=== PATIENT | male | born 1975 | race Two or more races ===

== ENCOUNTER 2020-07-13 06:59 | Outpatient (REF) | payer OTHER, SELFPAY ==
--- NOTE | 2020-07-13 07:07 | XR_ITS ---
EXAMINATION: XR SHOULDER, RIGHT CLINICAL INFORMATION: Pain right shoulder. COMPARISON: None TECHNIQUE: Two views of the right shoulder. FINDINGS: There is a widening of the right AC joint with elevated lateral clavicle in relation to acromion. Also visualized is hypertrophic ossification extending from the undersurface of lateral clavicle to the coracoid process the glenohumeral joints space is normal. The proximal humerus is normal. No acute fracture or dislocation. XR/XR shoulder RT min 2V IMPRESSION: Widely of the right AC joint likely chronic deformity. There is hypertrophic ossification extending from the undersurface of clavicle to the coronary process unchanged to previous study. No acute fracture or dislocation.
== END 2020-07-13 07:00 | disposition home or self-care (01) ==
LOC: HO.XRAY 06:59
PROVIDERS: PCP Internal Medicine; Visit Provider Physical Medicine & Rehabilitation
DX: M25.511 Pain in right shoulder (principal); S42.031 Displaced fracture of lateral end of right clavicle
CPT/HCPCS: 73030

== ENCOUNTER 2020-12-04 06:05 | Outpatient (REF) | payer OTHER, SELFPAY ==
[2020-12-04 07:02] LABS: MANUAL DIFF FLAG NO
[2020-12-04 07:04] LABS: Basophils Absolute Auto 0.1 X10*3/uL (0.0-0.2); Basophils Percent Auto 1.4 % (0-2); Eosinophils Absolute Auto 0.2 X10*3/uL (0.0-0.4); Eosinophils Percent Auto 4.8 % (0-4); Hematocrit 40.4 % (42-52); Hemoglobin 12.5 g/dl (14.0-18.0); Imm Gran Abs Auto 0.01 X10*3/uL (0.00-0.03); Imm Gran Pct Auto 0.2 % (0.0-0.4); Lymphocytes Absolute Auto 1.9 X10*3/uL (1.2-4.9); Lymphocytes Percent Auto 42.5 % (20-40); Mean Corpuscular HGB Conc 30.9 g/dl (31.0-36.0); Mean Corpuscular Hemoglobin 28.3 pg (27.0-33.0); Mean Corpuscular Volume 91.6 fL (80-98); Mean Platelet Volume 10.9 fL (9.4-12.4); Monocytes Absolute Auto 0.6 X10*3/uL (0.1-1.2); Monocytes Percent Auto 14.1 % (2-11); Neutrophils Absolute Auto 1.6 X10*3/uL (2.0-8.3); Platelet Count 212 X10*3/uL (160-400); Red Blood Count 4.41 X10*6/uL (4.60-5.80); Red Cell Distribution Width 12.1 % (11.0-16.0); White Blood Count 4.4 X10*3/uL (4.8-10.8)
[2020-12-04 07:39] LABS: Alanine Aminotransferase 16 U/L (0-40); Albumin Level 4.4 g/dL (3.5-5.0); Alkaline Phosphatase 71 U/L (39-117); Anion Gap 12 (12-20); Aspartate Amino Transferase 41 U/L (5-37); Bilirubin Total < 0.2 mg/dL (0.0-1.0); Blood Urea Nitrogen 16 mg/dL (9-16); Calcium 9.5 mg/dL (8.4-10.2); Carbon Dioxide 28 mmol/L (22-29); Chloride 105 mmol/L (96-108); Cholesterol 204 mg/dL; Estimated Glomerular Filt Rate > 60; Glucose Fasting 98 mg/dL (60-99); HDL Cholesterol 67 mg/dL; LDL Cholesterol Calculated 128 mg/dl; Potassium 5.2 mmol/L (3.3-5.1); Sodium 140 mmol/L (135-145); Total Protein 7.4 g/dL (6.5-8.0); Triglycerides 49 mg/dL
== END 2020-12-04 06:06 | disposition home or self-care (01) ==
LOC: HO.LAB 06:05
PROVIDERS: PCP Internal Medicine; Visit Provider Internal Medicine
DX: D64.9 Anemia, unspecified (principal); M51.9 Unspecified thoracic, thoracolumbar and lumbosacral intervertebral disc disorder; E78.5 Hyperlipidemia, unspecified
CPT/HCPCS: 36415; 80053; 80061; 85025

== ENCOUNTER 2020-12-10 06:07 | Outpatient (REF) | payer OTHER, SELFPAY ==
[2020-12-10 07:20] LABS: MANUAL DIFF FLAG NO
[2020-12-10 07:28] LABS: Basophils Percent Auto 1.1 % (0-2); Eosinophils Absolute Auto 0.1 X10*3/uL (0.0-0.4); Eosinophils Percent Auto 3.8 % (0-4); Hematocrit 37.7 % (42-52); Lymphocytes Absolute Auto 1.7 X10*3/uL (1.2-4.9); Lymphocytes Percent Auto 44.5 % (20-40); Mean Corpuscular HGB Conc 31.8 g/dl (31.0-36.0); Mean Corpuscular Hemoglobin 28.5 pg (27.0-33.0); Mean Corpuscular Volume 89.5 fL (80-98); Mean Platelet Volume 11.2 fL (9.4-12.4); Monocytes Absolute Auto 0.5 X10*3/uL (0.1-1.2); Monocytes Percent Auto 12.1 % (2-11); Neutrophils Absolute Auto 1.4 X10*3/uL (2.0-8.3); Neutrophils Percent Auto 38.5 % (45-73); Platelet Count 203 X10*3/uL (160-400); Red Blood Count 4.21 X10*6/uL (4.60-5.80); White Blood Count 3.7 X10*3/uL (4.8-10.8)
[2020-12-10 07:43] LABS: Alanine Aminotransferase 14 U/L (0-40); Albumin Level 4.3 g/dL (3.5-5.0); Alkaline Phosphatase 71 U/L (39-117); Anion Gap 10 (12-20); Aspartate Amino Transferase 40 U/L (5-37); Bilirubin Total 0.4 mg/dL (0.0-1.0); Blood Urea Nitrogen 13 mg/dL (9-16); Calcium 9.3 mg/dL (8.4-10.2); Carbon Dioxide 27 mmol/L (22-29); Chloride 105 mmol/L (96-108); Cholesterol 190 mg/dL; Estimated Glomerular Filt Rate > 60; Glucose Fasting 86 mg/dL (60-99); HDL Cholesterol 61 mg/dL; LDL Cholesterol Calculated 111 mg/dl; Potassium 4.4 mmol/L (3.3-5.1); Sodium 138 mmol/L (135-145); Triglycerides 93 mg/dL
[2020-12-10 08:09] LABS: HIV AB/AG Nonreactive (Nonreactive); HIV Num 1 0.05 S/CO (0.00-0.99)
[2020-12-10 09:49] LABS: CT PCR NOT DETECTED (Not Detect.); NG PCR NOT DETECTED (Not Detect.)
[2020-12-11 04:47] LABS: Syphilis Screen Nonreactive (Nonreactive)
[2020-12-17 16:42] LABS: Vitamin D 25-OH, D2 <4 ng/mL; Vitamin D 25-OH, D3 25 ng/mL; Vitamin D 25-OH, Total 25 ng/mL (30-100)
== END 2020-12-10 06:08 | disposition home or self-care (01) ==
LOC: HO.LAB 06:07
PROVIDERS: Visit Provider Internal Medicine
DX: E55.9 Vitamin D deficiency, unspecified (principal); E78.5 Hyperlipidemia, unspecified; K21.9 Gastro-esophageal reflux disease without esophagitis; D64.9 Anemia, unspecified; Z11.3 Encounter for screening for infections with a predominantly sexual mode of transmission
CPT/HCPCS: 80053; 80061; 82306; 85025; 86780; 87389; 87491; 87591

== ENCOUNTER 2021-01-20 06:13 | Outpatient (REF) | payer OTHER, SELFPAY ==
[2021-01-23 19:06] LABS: TS Negative Control Passed; TS Panel A 0; TS Panel B 2; TS Positive Control Passed; TSpotTB Negative (SeeBelow)
== END 2021-01-20 06:14 | disposition home or self-care (01) ==
LOC: HO.LAB 06:13
PROVIDERS: PCP Internal Medicine; Visit Provider Internal Medicine
DX: Z01.84 Encounter for antibody response examination (principal)
CPT/HCPCS: 36415; 86481

== ENCOUNTER 2021-09-15 06:10 | Outpatient (REF) | payer OTHER, SELFPAY ==
[2021-09-15 06:21] LABS: MANUAL DIFF FLAG NO
[2021-09-15 07:18] LABS: Basophils Absolute Auto 0.1 X10*3/uL (0.0-0.2); Basophils Percent Auto 1.5 % (0-2); Eosinophils Absolute Auto 0.2 X10*3/uL (0.0-0.4); Eosinophils Percent Auto 5.2 % (0-4); Hematocrit 41.6 % (42.0-52.0); Hemoglobin 12.9 g/dl (14.0-18.0); Imm Gran Abs Auto 0.01 X10*3/uL (0.00-0.03); Imm Gran Pct Auto 0.2 % (0.0-0.4); Lymphocytes Percent Auto 41.9 % (20-40); Mean Corpuscular Hemoglobin 28.1 pg (27.0-33.0); Mean Corpuscular Volume 90.6 fL (80.0-98.0); Mean Platelet Volume 10.9 fL (9.4-12.4); Monocytes Absolute Auto 0.5 X10*3/uL (0.1-1.2); Monocytes Percent Auto 9.9 % (2-11); Neutrophils Absolute Auto 1.9 x10*3/uL (2.0-8.3); Neutrophils Percent Auto 41.3 % (45-73); Platelet Count 261 X10*3/uL (160-400); Red Blood Count 4.59 X10*6/uL (4.60-5.80); Red Cell Distribution Width 12.8 % (11.0-16.0); White Blood Count 4.7 X10*3/uL (4.8-10.8)
[2021-09-15 07:42] LABS: Alanine Aminotransferase 11 U/L (0-40); Albumin Level 4.5 g/dL (3.5-5.0); Alkaline Phosphatase 73 U/L (39-117); Anion Gap 12 (12-20); Aspartate Amino Transferase 32 U/L (5-37); Bilirubin Total 0.2 mg/dL (0.0-1.0); Blood Urea Nitrogen 15 mg/dL (9-16); Calcium 10.3 mg/dL (8.4-10.2); Carbon Dioxide 30 mmol/L (22-29); Chloride 102 mmol/L (96-108); Estimated Glomerular Filt Rate > 60; Glucose Random 69 mg/dL (60-115); Potassium 5.1 mmol/L (3.3-5.1); Sodium 139 mmol/L (135-145); Total Protein 7.7 g/dL (6.5-8.0)
== END 2021-09-15 06:11 | disposition home or self-care (01) ==
LOC: HO.LAB 06:10
PROVIDERS: PCP Internal Medicine; Visit Provider Physician Assistant Medical
DX: M54.16 Radiculopathy, lumbar region (principal)
CPT/HCPCS: 36415; 80053; 85025

== ENCOUNTER 2021-12-14 06:33 | Outpatient (REF) | payer OTHER, SELFPAY ==
[2021-12-14 06:50] LABS: MANUAL DIFF FLAG NO
[2021-12-14 07:30] LABS: Basophils Percent Auto 0.8 % (0-2); Eosinophils Absolute Auto 0.1 X10*3/uL (0.0-0.4); Eosinophils Percent Auto 2.3 % (0-4); Hematocrit 38.8 % (42.0-52.0); Hemoglobin 12.2 g/dl (14.0-18.0); Imm Gran Abs Auto 0.01 X10*3/uL (0.00-0.03); Imm Gran Pct Auto 0.3 % (0.0-0.4); Lymphocytes Absolute Auto 1.9 X10*3/uL (1.2-4.9); Lymphocytes Percent Auto 48.5 % (20-40); Mean Corpuscular HGB Conc 31.4 g/dl (31.0-36.0); Mean Corpuscular Hemoglobin 27.7 pg (27.0-33.0); Mean Platelet Volume 10.8 fL (9.4-12.4); Monocytes Absolute Auto 0.4 X10*3/uL (0.1-1.2); Monocytes Percent Auto 10.1 % (2-11); Neutrophils Absolute Auto 1.5 x10*3/uL (2.0-8.3); Platelet Count 186 X10*3/uL (160-400); Red Blood Count 4.41 X10*6/uL (4.60-5.80)
[2021-12-14 07:33] LABS: INTERNATIONAL NORM RATIO 0.9 (0.9-1.1); Prothrombin Time 10.7 SEC (9.9-13.0)
[2021-12-14 07:35] LABS: Partial Thromboplastin Time 35.6 SEC (24.1-38.0)
[2021-12-14 07:58] LABS: Alanine Aminotransferase 10 U/L (0-40); Albumin Level 4.3 g/dL (3.5-5.0); Alkaline Phosphatase 63 U/L (39-117); Anion Gap 11 (12-20); Aspartate Amino Transferase 33 U/L (5-37); Bilirubin Total 0.2 mg/dL (0.0-1.0); Blood Urea Nitrogen 12 mg/dL (9-16); Calcium 9.9 mg/dL (8.4-10.2); Carbon Dioxide 30 mmol/L (22-29); Chloride 102 mmol/L (96-108); Estimated Glomerular Filt Rate > 60; Glucose Fasting 84 mg/dL (60-99); Potassium 4.6 mmol/L (3.3-5.1); Sodium 138 mmol/L (135-145); Total Protein 7.2 g/dL (6.5-8.0)
== END 2021-12-14 06:34 | disposition home or self-care (01) ==
LOC: HO.LAB 06:33
PROVIDERS: PCP Internal Medicine; Visit Provider Nurse Practitioner Family
DX: Z01.818 Encounter for other preprocedural examination (principal); E78.00 Pure hypercholesterolemia, unspecified; I10 Essential (primary) hypertension; Z79.01 Long term (current) use of anticoagulants
CPT/HCPCS: 36415; 80053; 85025; 85610; 85730

== ENCOUNTER → 2021-12-20 06:44 | Outpatient (REF) | payer OTHER, SELFPAY ==
--- NOTE | 2021-12-20 | ECG_ITS ---
Test Reason : CP Blood Pressure : / mmHG Vent. Rate : 052 BPM Atrial Rate : 052 BPM P-R Int : 156 ms QRS Dur : 086 ms QT Int : 394 ms P-R-T Axes : 022 052 048 degrees QTc Int : 366 ms Sinus bradycardia Otherwise normal ECG When compared with ECG of 08-SEP-2012 14:23, Vent. rate has decreased BY 47 BPM QRS duration has decreased Borderline criteria for Inferior infarct are no longer Present T wave inversion no longer evident in Inferior leads Nonspecific T wave abnormality no longer evident in Anterolateral leads QT has shortened Referred By: George Barlow Electronically Signed By:ADRIAN BRIZUELA MD
== END ==
LOC: HO.CARD 06:44
PROVIDERS: PCP Internal Medicine; Visit Provider Nurse Practitioner Family
DX: R07.9 Chest pain, unspecified (principal)
CPT/HCPCS: 93005

== ENCOUNTER 2022-01-28 06:07 | Outpatient (REF) | payer OTHER, SELFPAY ==
[2022-01-28 07:50] LABS: Alanine Aminotransferase 17 U/L (0-40); Albumin Level 4.3 g/dL (3.5-5.0); Alkaline Phosphatase 75 U/L (39-117); Anion Gap 13 (12-20); Aspartate Amino Transferase 43 U/L (5-37); Bilirubin Total 0.2 mg/dL (0.0-1.0); Blood Urea Nitrogen 16 mg/dL (9-16); Calcium 9.6 mg/dL (8.4-10.2); Carbon Dioxide 26 mmol/L (22-29); Chloride 106 mmol/L (96-108); Cholesterol 199 mg/dL; Estimated Glomerular Filt Rate > 60; Glucose Fasting 80 mg/dL (60-99); HDL Cholesterol 58 mg/dL; LDL Cholesterol Calculated 128 mg/dl; Potassium 4.7 mmol/L (3.3-5.1); Sodium 140 mmol/L (135-145); Total Protein 7.2 g/dL (6.5-8.0); Triglycerides 66 mg/dL
[2022-01-28 08:12] LABS: Vitamin D 25-OH Total 31.8 ng/mL (>30)
== END 2022-01-28 06:08 | disposition home or self-care (01) ==
LOC: HO.LAB 06:07
PROVIDERS: PCP Internal Medicine; Visit Provider Internal Medicine
DX: Z00.00 Encounter for general adult medical examination without abnormal findings (principal); E55.9 Vitamin D deficiency, unspecified; E78.5 Hyperlipidemia, unspecified
CPT/HCPCS: 36415; 80053; 80061; 82306

== ENCOUNTER 2022-12-06 06:20 | Outpatient (REF) | payer OTHER, SELFPAY ==
[2022-12-06 06:38] LABS: MANUAL DIFF FLAG NO
[2022-12-06 07:59] LABS: Basophils Percent Auto 1.2 % (0-2); Eosinophils Absolute Auto 0.2 X10*3/uL (0.0-0.4); Eosinophils Percent Auto 5.5 % (0-4); Hematocrit 40.9 % (42.0-52.0); Imm Gran Abs Auto 0.01 X10*3/uL (0.00-0.03); Imm Gran Pct Auto 0.3 % (0.0-0.4); Lymphocytes Absolute Auto 1.6 X10*3/uL (1.2-4.9); Mean Corpuscular HGB Conc 31.8 g/dl (31.0-36.0); Mean Corpuscular Hemoglobin 28.1 pg (27.0-33.0); Mean Corpuscular Volume 88.3 fL (80.0-98.0); Mean Platelet Volume 11.5 fL (9.4-12.4); Monocytes Absolute Auto 0.4 X10*3/uL (0.1-1.2); Neutrophils Absolute Auto 1.3 x10*3/uL (2.0-8.3); Platelet Count 177 X10*3/uL (160-400); Red Blood Count 4.63 X10*6/uL (4.60-5.80); Red Cell Distribution Width 12.6 % (11.0-16.0); White Blood Count 3.5 X10*3/uL (4.8-10.8)
[2022-12-06 09:02] LABS: Alanine Aminotransferase 19 U/L (0-40); Albumin Level 4.2 g/dL (3.5-5.0); Alkaline Phosphatase 71 U/L (39-117); Anion Gap 12 (12-20); Aspartate Amino Transferase 61 U/L (5-37); Bilirubin Total 0.4 mg/dL (0.0-1.0); Blood Urea Nitrogen 15 mg/dL (9-16); Calcium 9.2 mg/dL (8.4-10.2); Carbon Dioxide 25 mmol/L (22-29); Chloride 107 mmol/L (96-108); Cholesterol 193 mg/dL; Estimated Glomerular Filt Rate > 60; Glucose Fasting 96 mg/dL (60-99); HDL Cholesterol 62 mg/dL; LDL Cholesterol Calculated 122 mg/dl; Potassium 4.1 mmol/L (3.3-5.1); Sodium 140 mmol/L (135-145); Total Protein 6.8 g/dL (6.5-8.0); Triglycerides 49 mg/dL
[2022-12-06 09:11] LABS: Vitamin D 25-OH Total 35.6 ng/mL (>30)
== END 2022-12-06 06:21 | disposition home or self-care (01) ==
LOC: HO.LAB 06:20
PROVIDERS: PCP Internal Medicine; Visit Provider Internal Medicine
DX: E55.9 Vitamin D deficiency, unspecified (principal); E78.5 Hyperlipidemia, unspecified; J44.9 Chronic obstructive pulmonary disease, unspecified; D64.9 Anemia, unspecified; D75.89 Other specified diseases of blood and blood-forming organs
CPT/HCPCS: 36415; 80053; 80061; 82306; 85025

== ENCOUNTER 2023-01-31 06:25 | Outpatient (REF) | payer OTHER, SELFPAY ==
[2023-01-31 06:40] LABS: MANUAL DIFF FLAG NO
[2023-01-31 07:31] LABS: Basophils Absolute Auto 0.1 X10*3/uL (0.0-0.2); Basophils Percent Auto 1.4 % (0-2); Eosinophils Absolute Auto 0.2 X10*3/uL (0.0-0.4); Eosinophils Percent Auto 4.3 % (0-4); Hematocrit 39.8 % (42.0-52.0); Hemoglobin 12.3 g/dl (14.0-18.0); Imm Gran Abs Auto 0.01 X10*3/uL (0.00-0.03); Imm Gran Pct Auto 0.2 % (0.0-0.4); Lymphocytes Absolute Auto 1.7 X10*3/uL (1.2-4.9); Lymphocytes Percent Auto 38.7 % (20-40); Mean Corpuscular HGB Conc 30.9 g/dl (31.0-36.0); Mean Corpuscular Hemoglobin 27.5 pg (27.0-33.0); Mean Platelet Volume 11.7 fL (9.4-12.4); Monocytes Absolute Auto 0.6 X10*3/uL (0.1-1.2); Monocytes Percent Auto 12.8 % (2-11); Neutrophils Absolute Auto 1.9 x10*3/uL (2.0-8.3); Neutrophils Percent Auto 42.6 % (45-73); Platelet Count 169 X10*3/uL (160-400); Red Blood Count 4.47 X10*6/uL (4.60-5.80); Red Cell Distribution Width 12.7 % (11.0-16.0); White Blood Count 4.4 X10*3/uL (4.8-10.8)
[2023-01-31 08:09] LABS: Alanine Aminotransferase 19 U/L (0-40); Albumin Level 4.3 g/dL (3.5-5.0); Alkaline Phosphatase 81 U/L (39-117); Aspartate Amino Transferase 45 U/L (5-37); Bilirubin Direct 0.1 mg/dL (0.0-0.5); Bilirubin Total 0.4 mg/dL (0.0-1.0); Iron 60 mcg/dL (45-160); Percent Iron Saturation 19 % (15-50); Total Iron Binding Capacity 310 mcg/dL (228-428); Unsaturated Iron Binding 250 ug/dL
== END 2023-01-31 06:26 | disposition home or self-care (01) ==
LOC: HO.LAB 06:25
PROVIDERS: PCP Internal Medicine; Visit Provider Internal Medicine
DX: Z00.00 Encounter for general adult medical examination without abnormal findings (principal); D64.9 Anemia, unspecified; E55.9 Vitamin D deficiency, unspecified
CPT/HCPCS: 36415; 80076; 82306; 83540; 85025

== ENCOUNTER 2023-05-24 08:59 | Outpatient (AMB) | payer OTHER, SELFPAY ==
--- NOTE | 2023-05-24 09:01 | AM.OFFVISNUR ---
Intake Intake Visit Reasons: PPD Implant Allergies acetaminophen [Tylenol-Codeine] Allergy (Intermediate, Verified 01/19/23 08:43) rash codeine [Tylenol-Codeine] Allergy (Intermediate, Verified 01/19/23 08:43) rash gabapentin Adverse Reaction (Intermediate, Verified 01/19/23 08:43) facial tingling Nubain Allergy (Intermediate, Uncoded 01/19/23 08:43) low blood pressure Office Meds tuberculin PPD 5 tub. unit/0.1 mL intradermal injection solution Performing Provider: Cheri Chávez MD Performing Location: [facility] Administered by: Karolina Ricardo RN on 05/24/23 09:09 Dose Route Admin Location Dispensed Lot Number Expiration Date NDC Assistant Prosecuting Attorney 0.1 mL intradermal left forearm 0.1 mL [id number] 06/20/26 61364-484-02 [employer] Coding Assessment & Plan Assessment & Plan Orders: Orders AMB PPD Planted Today Z11.1 - Encounter for screening for respiratory tuberculosis
== END 2023-05-24 09:10 | disposition home or self-care (01) ==
PROVIDERS: PCP Internal Medicine; Visit Provider Internal Medicine
DX: Z11.1 Encounter for screening for respiratory tuberculosis (principal)
CPT/HCPCS: 86580

== ENCOUNTER 2023-05-24 11:21 | Outpatient (AMB) | payer OTHER, SELFPAY ==
--- NOTE | 2023-05-24 09:45 | AM.OFFVISNUR ---
Intake Intake Visit Reasons: Flu vaccine Allergies acetaminophen [Tylenol-Codeine] Allergy (Intermediate, Verified 01/19/23 08:43) rash codeine [Tylenol-Codeine] Allergy (Intermediate, Verified 01/19/23 08:43) rash gabapentin Adverse Reaction (Intermediate, Verified 01/19/23 08:43) facial tingling Nubain Allergy (Intermediate, Uncoded 01/19/23 08:43) low blood pressure Office Procedures Flu Questionnaire Does the patient have a severe egg allergy?: No Does the patient have severe life threatening allergies?: No Does the patient have a fever or illness today?: No Has the patient ever had Guillain-Hogeland Syndrome?: No Has the patient ever had any past reaction to a flu shot?: No Immunizations flu vacc [id number] 6mos up(PF) 60 mcg(15 mcgx4)/0.5 mL IM syringe Performing Provider: Cheri Chávez MD Performing Location: [facility] Administered by: CRYSTAL Gonzales on 05/24/23 09:46 Dose Route Admin Location Dispensed Lot Number Expiration Date NDC Psychologist 0.5 mL IM Left Deltoid 0.5 mL [id number] 02/18/24 21393-916-80 [employer] VIS Given Date VIS Provided VIS Publication Date 05/24/23 Single Vaccine 21 Eligibility Eligibility Date Funding Source Not [facility] Eligible 05/24/23 Private Coding Assessment & Plan Assessment & Plan Orders: Orders Influenza [id number] Immunization Today Z23 - Encounter for immunization
== END 2023-05-24 11:22 | disposition home or self-care (01) ==
LOC: HO.HMGH 11:21
PROVIDERS: PCP Internal Medicine; Visit Provider Internal Medicine
DX: Z23 Encounter for immunization (principal)
CPT/HCPCS: 90471; 90686

== ENCOUNTER 2023-06-12 09:28 | Outpatient (AMB) | payer OTHER, SELFPAY ==
--- NOTE | 2023-06-12 09:45 | AM.OFFVISNUR ---
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 unit/0.1 mL intradermal injection solution Performing Provider: Cheri Chávez MD Performing Location: [facility] Administered by: Donny Hudson RN on 06/12/23 09:40 Dose Route Admin Location Dispensed Lot Number Expiration Date NDC Machinist 2Nd Shift 0.1 mL intradermal left forearm 0.1 mL [id number] 06/20/26 67264-872-87 [employer] Comments: consented for PPD implant. Patient educated to return in 48 hours on Monday and he verbalized understanding. tolerated well. Coding Assessment & Plan Assessment & Plan Orders: Orders AMB PPD Planted Today Z11.1 - Encounter for screening for respiratory tuberculosis
== END 2023-06-12 09:43 | disposition home or self-care (01) ==
PROVIDERS: PCP Internal Medicine; Visit Provider Internal Medicine
DX: Z11.1 Encounter for screening for respiratory tuberculosis (principal)
CPT/HCPCS: 86580

== ENCOUNTER 2023-07-25 07:54 | Outpatient (AMB) | payer OTHER, SELFPAY ==
--- NOTE | 2023-07-25 08:03 | A.OFFPC_ITS ---
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 Required: No Accompanied by: Self / Same As Patient Allergies acetaminophen [Tylenol-Codeine] Allergy (Intermediate, Verified 07/25/23 08:17) rash codeine [Tylenol-Codeine] Allergy (Intermediate, Verified 07/25/23 08:17) rash gabapentin Adverse Reaction (Intermediate, Verified 07/25/23 08:17) facial tingling Nubain Allergy (Intermediate, Uncoded 07/25/23 08:17) low blood pressure Medication List - Last Reconciled 07/25/23 by Cheri Chávez MD albuterol sulfate 90 mcg/actuation (Ventolin HFA) 2 puffs inhalation Q4-6H PRN 30 days cholecalciferol (vitamin D3) 25 mcg PO DAILY 90 days clotrimazole-betamethasone 1-0.05 % 1 appl topical BID 30 days fluticasone propionate 50 mcg/actuation 1 spray intranasal DAILY 30 days loratadine (Allergy Relief (loratadine)) 10 mg PO DAILY 90 days montelukast (Singulair) 10 mg PO QPM 30 days omeprazole 20 mg PO BID 90 days rivaroxaban (Xarelto) 20 mg PO DAILY 90 days sennosides (Senna Lax) 8.6 mg PO BEDTIME PRN 90 days tramadol 50 mg PO Q4-6H PRN 30 days umeclidinium-vilanterol 62.5-25 mcg/actuation (Anoro Ellipta) 1 inh inhalation DAILY 30 days Tobacco use date assessed: 09/14/22 Dental Screening Dental Screen Date: 07/25/23 Did you have a dental visit in the last 12 months?: Yes Did you have a dental problem in the last 6 months where you did not have access to dental care?: No Was dental information given to patient?: Patient has dentist HPI HPI Comments History of Present Illness Details This is a 47-year-old male with COPD, constipation, GERD and lumbar disc disease that comes today for follow-up on his conditions. COPD stable with longstanding inhaler. GERD well controlled with PPIs as needed. Had lumbar disc fusion about 2 months ago and still has some pain but has markedly improved. Constipation stable with senna as needed. No chest pain or shortness of breath. [facility] Medical History Bicytopenia Encounter for physical examination Constipation by delayed colonic transit Generalized anxiety disorder Allergic rhinitis Screening for STD (sexually transmitted disease) Presence of vena cava filter Lumbar disc disease GERD (gastroesophageal reflux disease) Moderate asthma Right leg DVT Surgical History History of lumbar surgery Family History Father FH: mental illness Maternal Grandmother Stroke Cancer Diabetes HTN (hypertension) Mother No problems noted. Social History Housing: Apartment Alcohol intake: former Year quit: 2010 Patient Tobacco Use Status: Former Tobacco user Tobacco use type: Cigarette Years Smoked: 24 years e-Cigarette/Vaping Use: Never Used Second Hand Smoke Exposure: No service: No Current occupational status: unemployed Cognitive needs: No Hearing needs: No Vision needs: No Questionnaire Thrive Questionnaire Date Thrive assessed: 09/14/22 SHILO-7 AMB Questionnaire SHILO-7 Date SHILO - 7 assessed: 09/14/22 Source: Developed by Drs. Nilesh Juárez, Gris Antonio, Yuan Guillen and colleagues, with an educational len from [employer]. Review of Systems Const All systems reviewed & are unremarkable except as noted in HPI and below Eyes Reports no additional complaints, Denies change in vision and Denies other visual disturbances Card Denies chest pain at rest, Denies chest pain with activity, Denies edema, Denies irregular heart rhythm, Denies claudication, Denies dyspnea, Denies dyspnea on exertion, Denies orthopnea, Denies paroxysmal nocturnal dyspnea and Denies slow heart rate Resp Denies cough, Denies dyspnea and Denies dyspnea on exertion GI Denies abdominal pain, Denies change in bowel habits, Denies excessive flatus, Denies nausea and Denies vomiting Denies urinary hesitancy, Denies urinary incontinence and Denies urinary urgency Musc Denies abnormal gait, Denies atrophy, Denies deformity and Denies limited range of motion Skin/Breast Denies bleeding lesions, Denies changing lesions and Denies rash Neuro Denies abnormal gait and Denies lack of coordination Physical exam (Primary Care) Vital Signs: Last Vital Signs BP 118/72 07/25/23 08:04 BMI result Body Mass Index 26.5 Tobacco/Smoking Status: Tobacco use Status Tobacco use date assessed 09/14/22 07/25/23 08:09 Patient Tobacco Use Status Former Tobacco user 07/25/23 08:09 Tobacco use type Cigarette 07/25/23 08:09 e-Cigarette/Vaping Use Never Used 07/25/23 08:09 Thrive Assessment: Date of Thrive Assessment Date Thrive assessed 09/14/22 07/25/23 08:09 Eyes General: appearance normal, both eyes and all related structures Eyelids: Yes eyelids normal Conjunctivae: conjunctivae normal Neck Neck: Yes normal visual inspection and Yes supple Resp Effort & Inspection: normal respiratory effort Auscultation: clear to auscultation bilaterally Cardio Jugular venous distension: no JVD Rate: regular rate Rhythm: regular rhythm Heart sounds: S1 normal heart sound present and S2 normal heart sound present Extrem General: Yes full ROM Assessment and Plan Assessment & Plan (1) COPD (chronic obstructive pulmonary disease): Code(s): J44.9 - Chronic obstructive pulmonary disease, unspecified Plan: Continue longstanding inhaler. Use rescue inhaler as needed. (2) Constipation by delayed colonic transit: Code(s): K59.01 - Slow transit constipation Plan: Continue senna as needed. (3) Lumbar disc disease: Comment: Surgical repair in his 20's Code(s): M51.9 - Unspecified thoracic, thoracolumbar and lumbosacral intervertebral disc disorder Plan: Continue tramadol as needed for severe pain. (4) GERD (gastroesophageal reflux disease): Code(s): K21.9 - Gastro-esophageal reflux disease without esophagitis Qualifiers: Esophagitis presence: esophagitis presence not specified Qualified Code(s): K21.9 - Gastro-esophageal reflux disease without esophagitis Plan: Continue PPIs as needed. Orders: Referrals Cologuard Test Z12.11 - Encounter for screening for malignant neoplasm of colon, Z12.12 - Encounter for screening for malignant neoplasm of rectum Medications: New Ventolin HFA 90 mcg/actuation (albuterol sulfate) 2 puffs inhalation Q6H PRN 8 grams 2RF shortness of breath or wheezing 30 days NS Refilled cholecalciferol (vitamin D3) 25 mcg PO DAILY 90 caps 3RF 90 days Coding Level of Care Code Est Pt Level 4 (16264) Diagnoses COPD (chronic obstructive pulmonary disease) J44.9 Constipation by delayed colonic transit K59.01 Lumbar disc disease M51.9 Gastroesophageal reflux disease, unspecified whether esophagitis present K21.9 Esophagitis presence: esophagitis presence not specified Time Spent (min) 22
[2023-07-25 08:04] VITALS: BP 118/72; BMI 26.5
== END 2023-07-25 08:27 | disposition home or self-care (01) ==
PROVIDERS: PCP Internal Medicine; Visit Provider Internal Medicine
DX: J44.9 Chronic obstructive pulmonary disease, unspecified (principal); K59.01 Slow transit constipation; M51.9 Unspecified thoracic, thoracolumbar and lumbosacral intervertebral disc disorder; K21.9 Gastro-esophageal reflux disease without esophagitis
CPT/HCPCS: 99214

== ENCOUNTER 2024-01-24 06:13 | Outpatient (REF) | payer MEDICARE, SELFPAY ==
[2024-01-24 08:15] LABS: Alanine Aminotransferase 14 U/L (0-40); Albumin Level 4.2 g/dL (3.5-5.0); Alkaline Phosphatase 76 U/L (39-117); Anion Gap 10 (12-20); Aspartate Amino Transferase 38 U/L (5-37); Bilirubin Total 0.4 mg/dL (0.0-1.0); Blood Urea Nitrogen 17 mg/dL (9-16); Carbon Dioxide 27 mmol/L (22-29); Chloride 105 mmol/L (96-108); Cholesterol 197 mg/dL (<200); Estimated Glomerular Filt Rate > 60; Glucose Fasting 86 mg/dL (60-99); HDL Cholesterol 68 mg/dL (>40); LDL Cholesterol Calculated 119 mg/dL (<100); Potassium 4.1 mmol/L (3.3-5.1); Sodium 138 mmol/L (135-145); Total Protein 7.3 g/dL (6.5-8.0); Triglycerides 51 mg/dL (<150)
[2024-01-27 17:43] LABS: TS Negative Control Passed; TS Panel A 2; TS Panel B 3; TS Positive Control Passed; TSpotTB Negative (Negative)
== END 2024-01-24 06:14 | disposition home or self-care (01) ==
LOC: HO.LAB 06:13
PROVIDERS: PCP Internal Medicine; Visit Provider Internal Medicine
DX: Z11.1 Encounter for screening for respiratory tuberculosis (principal); E78.5 Hyperlipidemia, unspecified; M51.9 Unspecified thoracic, thoracolumbar and lumbosacral intervertebral disc disorder
CPT/HCPCS: 36415; 80053; 80061; 86481

== ENCOUNTER 2024-01-25 08:36 | Outpatient (AMB) | payer MEDICARE, SELFPAY ==
--- NOTE | 2024-01-25 08:54 | A.OFFVIS_ITS ---
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 Accompanied by: Self / Same As Patient Allergies acetaminophen [Tylenol-Codeine] Allergy (Intermediate, Verified 01/25/24 09:12) rash codeine [Tylenol-Codeine] Allergy (Intermediate, Verified 01/25/24 09:12) rash gabapentin Adverse Reaction (Intermediate, Verified 01/25/24 09:12) facial tingling Nubain Allergy (Intermediate, Uncoded 01/25/24 09:12) low blood pressure Medication List - Last Reconciled 01/25/24 by Cheri Chávez MD albuterol sulfate 90 mcg/actuation (Ventolin HFA) 2 puffs inhalation Q4-6H PRN 30 days cholecalciferol (vitamin D3) 25 mcg PO DAILY 90 days clotrimazole-betamethasone 1-0.05 % 1 appl topical BID 30 days diclofenac sodium 1% (Arthritis Pain (diclofenac)) 2 grams topical QID PRN 30 days fluticasone propionate 50 mcg/actuation 1 spray intranasal DAILY 30 days loratadine (Allergy Relief (loratadine)) 10 mg PO DAILY 90 days montelukast (Singulair) 10 mg PO QPM 30 days omeprazole 20 mg PO BID 90 days rivaroxaban (Xarelto) 20 mg PO DAILY 90 days sennosides (Senna Lax) 8.6 mg PO BEDTIME PRN 90 days tramadol 50 mg PO Q4-6H PRN 30 days triamcinolone acetonide 0.1% 1 appl topical DAILY 2 weeks umeclidinium-vilanterol 62.5-25 mcg/actuation (Anoro Ellipta) 1 inh inhalation DAILY 30 days Ventolin HFA 90 mcg/actuation (albuterol sulfate) 2 puffs inhalation Q6H PRN 30 days NS HPI HPI Comments History of Present Illness Details This is a 48-year-old male with COPD and mild major depression that comes for his Medicare wellness exam. Has never had a colonoscopy and will be refer through open access. PPP handed to patient. No chest pain or shortness on breath. COPD stable with Anoro. He declines counseling for his depression but I will start him on citalopram for this matter. He also has chronic right leg DVT on Xarelto. FOR[facility]LY [facility], [facility] Medical History (Updated 01/25/24 @ 09:41 by Cheri Chávez MD) Bicytopenia Encounter for physical examination Constipation by delayed colonic transit Generalized anxiety disorder Allergic rhinitis Screening for STD (sexually transmitted disease) Presence of vena cava filter Lumbar disc disease GERD (gastroesophageal reflux disease) Moderate asthma Right leg DVT Surgical History History of lumbar surgery Family History Father FH: mental illness Maternal Grandmother Stroke Cancer Diabetes HTN (hypertension) Mother No problems noted. Social History Housing: Apartment Alcohol intake: former Year quit: 2010 Patient Tobacco Use Status: Former Tobacco user Tobacco use type: Cigarette Years Smoked: 24 years e-Cigarette/Vaping Use: Never Used Second Hand Smoke Exposure: No service: No Current occupational status: unemployed Cognitive needs: No Hearing needs: No Vision needs: No Questionnaire Medicare Wellness Checkup What gender do you identify with?: male During the past 4 weeks, how much have you been bothered by emotional problems such as feeling anxious, depressed, irritable, sad or downhearted, and blue?: quite a bit During the past 4 weeks, has your physical & emotional health limited your social activities with family, friends, neighbors, or groups?: quite a bit During the past 4 weeks, how much bodily pain have you generally had?: severe pain During the past 4 weeks, was someone available to help you if you needed & wanted help?: yes, some During the past 4 weeks, what was the hardest physical activity you could do for at least 2 minutes?: light Can you get to places out of walking distance without help? (For eg., can you travel alone on buses, taxis or drive your car?): No Can you go shopping for groceries or clothes without someone's help?: No Can you prepare your own meals?: No Can you do your housework without help?: No Because of any health problems, do you need the help of another person with your personal care needs such as eating, bathing, dressing or getting around the house?: No Can you handle your own money without help?: Yes During the past 4 weeks, how would you rate your health in general?: fair During the past 4 weeks how have things been going for you?: pretty bad Are you having difficulties driving your car?: no Do you always fasten your seat belt when you are in a car?: yes, sometimes During past 4 weeks, have you been bothered by the following: never: Sexual problems?, sometimes: Falling or dizzy when standing up and Trouble eating well?, often: Problems using the telephone? and Tiredness or fatigue? and always: Teeth or denture problems? Have you fallen 2 or more times in the past year?: Yes Are you afraid of falling?: Yes Are you a smoker?: no During the past 4 weeks, how many drinks of wine, beer, or other alcoholic bever ages did you have?: no alcohol at all Do you exercise for about 20 minutes 3 or more times a week?: no, I usually do not exercise this much Have you been given information to help with the following?: yes: Keeping track of your medications? and no: Hazards in your house that might hurt you? How often do you have trouble taking medicines the way you have been told to take them?: I always take medicine as prescribed How confident are you that you can control & manage most of your health problems?: somewhat confident What is your race?: or origin or descent Mini Mental State Exam (MMSE) Orientation What is the (year) (season) (date) (day) (month)?: year, season, date, day and month Where are we (state) (county) (town or city) (hospital) (floor)?: state, county, town or city, hospital/clinic and floor Registration Name of 3 unrelated objects clearly and slowly, then ask patient to repeat all 3 of them. (1st repeat determines score. Make sure they can repeat all three): object 1, object 2 and object 3 Attention & Calculation (CHOOSE ONE) Spell WORLD backwards (DLROW): 5 letters Recall Ask patient to repeat the 3 items from question #3.: object 1, object 2 and object 3 Language Show patient a wristwatch & ask what it is. Repeat for pencil.: watch and pencil Ask the patient to repeat the phrase 'No ifs, ands, or buts' after you.: correct Ask the patient to 'take a piece of paper with their right hand' 'fold paper in half' 'place paper on floor': take paper in right hand, fold paper in half and place paper on floor Print the sentence 'CLOSE YOUR EYES' on a piece. If patient actually closes eyes then score.: followed written direction Give patient a blank piece of paper & ask to write a sentence. Score if it contains a noun & verb.: sentence contains subject and verb Ask patient to copy figure of intersecting pentagons exactly. Score if all 10 angles & 2 intersects are included.: all 10 angles present & 2 are intersected Score Score: 30 Activity of Daily Living Bathing - sponge bath, tub bath or shower: receives no assistance (gets in/out by self, if usual bathing means Dressing - getting clothes from closets & drawers, including inner/outer garments & fasteners.: gets clothes & gets completely dressed without help Toileting - going to the 'toilet room' for urine/bowel elimination & cleaning self/arranging clothes: goes to toilet room, cleans self, arranges clothes without help Transfer: moves in & out of bed and chair without help (may use support object) Continence: controls urination/bowel movements completely by self Feeding: feeds self without help Total Score: 0 Information obtained from: patient Using telephone: independent Traveling: independent Shopping: independent Preparing meals: independent Housework: independent Taking medicine: independent Managing money: independent PHQ-9 Over the last 2 weeks, how often have you been bothered by any of the following problems? 1. Little interest or pleasure in doing things: not at all 2. Feeling down, depressed, or hopeless: more than half the days 3. Trouble falling or staying asleep, or sleeping too much: nearly every day 4. Feeling tired or having little energy: nearly every day 5. Poor appetite or overeating: more than half the days 6. Feeling bad about yourself - or that you are a failure or have let yourself or your family down: nearly every day 7. Trouble concentrating on things, such as reading the newspaper or watching television: nearly every day 8. Moving or speaking so slowly that other people could have noticed. Or the opposite - being so fidgety or restless that you have been moving around a lot more than usual: nearly every day 9. Thoughts that you would be better off or of hurting yourself in some way: not at all Total score: 19 Depression Screening Interpretation: Positive Depression Screening Follow-up: Existing condition, New Medication prescribed and Follow-up Visit Requested Depression Screening Done: Yes 87939 - PHQ-9 Billing: Yes Source: Developed by Drs. Nilesh Juárez, Gris Antonio, Yuan Guillen and colleagues, with an educational len from [employer]. SHILO-7 AMB Questionnaire SHILO-7 Date SHILO - 7 assessed: 01/25/24 Feeling nervous, anxious, or on edge: 1 = Several days Not being able to stop or control worryin = Not at all Worrying too much about different things: 1 = Several days Trouble relaxin = Several days Being so restless that it is hard to sit still: 0 = Not at all Becoming easily annoyed or irritable: 1 = Several days Feeling afraid as if something awful might happen: 0 = Not at all Total SHILO-7 score (0-4 normal; 5-9 mild; 10-14 moderate; 15-21 severe): 4 Source: Developed by Drs. Nilesh Juárez, Gris Antonio, Yuan Guillen and colleagues, with an educational len from [employer]. SHILO-7 Assessment Billing SHILO-7 Assessment Tool: SHILO-7 Assessment 96500 Thrive Questionnaire Date Thrive assessed: 01/25/24 I am a: Patient What is your living situation today?: I have a steady place to live Within the past 12 months, did the food you bought not last and you didn't have the money to get more?: Never true Within the past 12 months, did you worry whether your food would run out before you got money to buy more?: Never true Do you have trouble paying for medicines?: No Do you have trouble getting transportation to medical appointments?: No Do you have trouble paying your heating and electricity bill?: No Do you have trouble taking care of your child, family member or friend?: No Do you have trouble with day-to-day activities such as bathing, preparing meals, shopping, managing finances, etc.?: No Are you currently unemployed and looking for a job?: No Are you interested in more education?: No Please select the resources that you would like help with: None Currently or been in a relationship where the following occur: no concerns reported THRIVE Score: 0 AUDIT C Alcohol Use Questionnaire (AUDIT-C) 1. How often do you have a drink containing alcohol?: Never Total Score: 0 Score Reviewed/Action Taken: No Review of Systems Const All systems reviewed & are unremarkable except as noted in HPI and below Card Denies chest pain at rest, Denies chest pain with activity, Denies edema, Denies irregular heart rhythm, Denies claudication, Denies dyspnea, Denies dyspnea on exertion, Denies orthopnea, Denies paroxysmal nocturnal dyspnea and Denies slow heart rate Resp Denies cough, Denies dyspnea and Denies dyspnea on exertion Musc Reports back pain Physical Exam Vital Signs: Last Vital Signs BP 122/82 01/25/24 08:58 BMI result Body Mass Index 24.7 Resp Effort & Inspection: normal respiratory effort Auscultation: clear to auscultation bilaterally Cardio Jugular venous distension: no JVD Rate: regular rate Rhythm: regular rhythm Heart sounds: S1 normal heart sound present and S2 normal heart sound present Neuro General: no focal motor deficits Romberg Test: Negative Extrem General: Yes full ROM Psych Appearance: grossly normal Assessment & Plan Assessment & Plan (1) Encounter for Medicare annual wellness exam: Code(s): Z00.00 - Encounter for general adult medical examination without abnormal findings Plan: Repeat in a year. (2) Moderate major depression: Code(s): F32.1 - Major depressive disorder, single episode, moderate Plan: Start citalopram. (3) COPD (chronic obstructive pulmonary disease): Code(s): J44.9 - Chronic obstructive pulmonary disease, unspecified Plan: Continue Anoro. Use rescue inhaler as needed. (4) Right leg DVT: Code(s): I82.401 - Acute embolism and thrombosis of unspecified deep veins of right lower extremity Plan: Continue Xarelto. Orders: Referrals Open Access Screening Colonoscopy Referral Z12.11 - Encounter for screening for malignant neoplasm of colon Medications: New citalopram 10 mg PO DAILY 90 tabs 0RF 90 days F32.1 - Major depressive disorder, single episode, moderate lidocaine 4% (Aspercreme (lidocaine)) 1 patch topical DAILY PRN 30 ea 0RF pain 30 days Quality Reporting (2019) Depression/Bipolar (159/160/161/177) PHQ-9: Total score: 19 Coding Level of Care Code Medicare First (G0438) Diagnoses Encounter for Medicare annual wellness exam Z00.00 Moderate major depression F32.1 COPD (chronic obstructive pulmonary disease) J44.9 Right leg DVT I82.401 Additional Codes SHILO-7 Assessment Billing - SHILO-7 Assessment Tool: SHILO-7 Assessment 62907 ([id number]) Time Spent (min) 36
[2024-01-25 08:58] VITALS: BP 122/82; BMI 24.7
== END 2024-01-25 09:31 | disposition home or self-care (01) ==
PROVIDERS: PCP Internal Medicine; Visit Provider Internal Medicine
DX: Z00.00 Encounter for general adult medical examination without abnormal findings (principal); F32.1 Major depressive disorder, single episode, moderate; J44.9 Chronic obstructive pulmonary disease, unspecified; I82.401 Acute embolism and thrombosis of unspecified deep veins of right lower extremity
CPT/HCPCS: G0438

== ENCOUNTER 2024-07-30 08:36 | Outpatient (AMB) | payer MEDICARE, SELFPAY ==
[2024-07-30 08:47] VITALS: BP 112/80; BMI 26.3
--- NOTE | 2024-07-30 08:47 | MHC.PC.OV ---
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 Accompanied by: Mother Allergies acetaminophen [Tylenol-Codeine] Allergy (Intermediate, Verified 07/30/24 09:09) rash codeine [Tylenol-Codeine] Allergy (Intermediate, Verified 07/30/24 09:09) rash gabapentin Adverse Reaction (Intermediate, Verified 07/30/24 09:09) facial tingling Nubain Allergy (Intermediate, Uncoded 07/30/24 09:09) low blood pressure Medication List - Last Reconciled 07/30/24 by Cheri Chávez MD albuterol sulfate 90 mcg/actuation (Ventolin HFA) 2 puffs inhalation Q4-6H PRN 30 days cholecalciferol (vitamin D3) 25 mcg PO DAILY 90 days citalopram 10 mg PO DAILY 90 days clotrimazole-betamethasone 1-0.05 % 1 appl topical BID 30 days diclofenac sodium 1% (Arthritis Pain (diclofenac)) 2 grams topical QID PRN 30 days fluticasone propionate 50 mcg/actuation 1 spray intranasal DAILY 30 days lidocaine 4% (Aspercreme (lidocaine)) 1 patch topical DAILY PRN 30 days loratadine (Allergy Relief (loratadine)) 10 mg PO DAILY 90 days montelukast (Singulair) 10 mg PO QPM 30 days omeprazole 20 mg PO BID 90 days rivaroxaban (Xarelto) 20 mg PO DAILY 90 days sennosides (Senna Lax) 8.6 mg PO BEDTIME PRN 90 days tramadol 50 mg PO Q4-6H PRN 30 days triamcinolone acetonide 0.1% 1 appl topical DAILY 2 weeks umeclidinium-vilanterol 62.5-25 mcg/actuation (Anoro Ellipta) 1 inh inhalation DAILY 30 days Ventolin HFA 90 mcg/actuation (albuterol sulfate) 2 puffs inhalation Q6H PRN 30 days NS Tobacco use date assessed: 07/30/24 Dental Screening Dental Screen Date: 07/30/24 Did you have a dental visit in the last 12 months?: Yes Did you have a dental problem in the last 6 months where you did not have access to dental care?: No Was dental information given to patient?: Patient has dentist HPI HPI Comments History of Present Illness Details The patient is a 48-year-old male presenting with a follow-up for Chronic Obstructive Pulmonary Disease (COPD) management and other chronic conditions. He has a history of COPD for which he uses a rescue inhaler intermittently when experiencing shortness of breath. He quit smoking 11 years ago, which has potentially aided in the management of COPD symptoms. The patient also takes Montelukast for COPD. He reports ongoing lower back pain following lumbar spine surgery in May of last year, which involved the placement of three plates and two screws. The patient's pain management includes a lidocaine patch; however, he has expressed dissatisfaction with the surgery outcomes and has not attended therapy post-surgery. The patient has a history of depression and anxiety, managed with Citalopram. He experienced facial tingling from Gabapentin, which is noted among his medication allergies. The patient also has a history of gastroesophageal reflux disease (GERD) managed with Omeprazole. The patient has a history of blood clots and is currently on Rivaroxaban 20 mg. Denies any active bleeding. He reports a history of allergic reactions to medications such as Tylenol with codeine causing rash and Nubain. There is mention of Loratadine use for allergies and Vitamin D supplementation. [facility] Medical History (Updated 07/30/24 @ 09:18 by Cheri Chávez MD) Bicytopenia Encounter for physical examination Constipation by delayed colonic transit Generalized anxiety disorder Allergic rhinitis Screening for STD (sexually transmitted disease) Presence of vena cava filter Lumbar disc disease GERD (gastroesophageal reflux disease) Moderate asthma Right leg DVT Surgical History History of lumbar surgery Family History Father FH: mental illness Maternal Grandmother Stroke Cancer Diabetes HTN (hypertension) Mother No problems noted. Social History Housing: Apartment Alcohol intake: former Year quit: 2010 Patient Tobacco Use Status: Former Tobacco user Tobacco use type: Cigarette Years Smoked: 24 years e-Cigarette/Vaping Use: Never Used Second Hand Smoke Exposure: No service: No Current occupational status: unemployed Cognitive needs: No Hearing needs: No Vision needs: No Questionnaire Thrive Questionnaire Date Thrive assessed: 01/25/24 AUDIT C Alcohol Use Questionnaire (AUDIT-C) 1. How often do you have a drink containing alcohol?: Never Total Score: 0 Score Reviewed/Action Taken: No SHILO-7 AMB Questionnaire SHILO-7 Date SHILO - 7 assessed: 01/25/24 Source: Developed by Drs. Nilesh Juárez, Gris Antonio, Yuan Guillen and colleagues, with an educational len from [employer]. Review of Systems Const All systems reviewed & are unremarkable except as noted in HPI and below Card Denies chest pain at rest, Denies chest pain with activity, Denies edema, Denies irregular heart rhythm, Denies claudication, Denies dyspnea, Denies dyspnea on exertion, Denies orthopnea, Denies paroxysmal nocturnal dyspnea and Denies slow heart rate Resp Denies cough, Denies dyspnea and Denies dyspnea on exertion GI Denies abdominal pain, Denies change in bowel habits, Denies excessive flatus, Denies nausea and Denies vomiting Denies urinary hesitancy, Denies urinary incontinence and Denies urinary urgency Physical exam (Primary Care) Vital Signs: Last Vital Signs BP 112/80 07/30/24 08:47 BMI result Body Mass Index 26.3 Tobacco/Smoking Status: Tobacco use Status Tobacco use date assessed 07/30/24 07/30/24 08:50 Patient Tobacco Use Status Former Tobacco user 07/30/24 08:48 Tobacco use type Cigarette 07/30/24 08:48 e-Cigarette/Vaping Use Never Used 07/30/24 08:48 Thrive Assessment: Date of Thrive Assessment Date Thrive assessed 01/25/24 07/30/24 08:48 Resp Effort & Inspection: normal respiratory effort Auscultation: clear to auscultation bilaterally Cardio Jugular venous distension: no JVD Rate: regular rate Rhythm: regular rhythm Heart sounds: S1 normal heart sound present and S2 normal heart sound present Extrem General: Yes full ROM Office Procedures Flu Questionnaire Does the patient have a severe egg allergy?: No Immunizations Fluarix Triv [id number] (PF) 45 mcg (15 mcg x 3)/0.5 mL IM syringe Performing Provider: Cheri Chávez MD Performing Location: [facility] Documented (not given) by: ALLISON Ca on 07/30/24 08:51 Reason Not Given: Patient Refused Coding Level of Care Code Est Pt Level 4 (33301) Complex EM visit Add On G2211 Diagnoses Right leg pain M79.604 Moderate major depression F32.1 Right leg DVT I82.401 COPD (chronic obstructive pulmonary disease) J44.9 Gastroesophageal reflux disease, unspecified whether esophagitis present K21.9 Esophagitis presence: esophagitis presence not specified Lumbar disc disease M51.9 Generalized anxiety disorder F41.1 Time Spent (min) 22 Assessment & Plan Assessment & Plan (1) Right leg pain: Code(s): M79.604 - Pain in right leg Category: Medical (2) Moderate major depression: Code(s): F32.1 - Major depressive disorder, single episode, moderate Category: Medical (3) Right leg DVT: Code(s): I82.401 - Acute embolism and thrombosis of unspecified deep veins of right lower extremity Category: Medical (4) COPD (chronic obstructive pulmonary disease): Code(s): J44.9 - Chronic obstructive pulmonary disease, unspecified Category: Medical (5) GERD (gastroesophageal reflux disease): Code(s): K21.9 - Gastro-esophageal reflux disease without esophagitis Category: Medical Qualifiers: Esophagitis presence: esophagitis presence not specified Qualified Code(s): K21.9 - Gastro-esophageal reflux disease without esophagitis (6) Lumbar disc disease: Comment: Surgical repair in his 20's Code(s): M51.9 - Unspecified thoracic, thoracolumbar and lumbosacral intervertebral disc disorder Category: Medical (7) Generalized anxiety disorder: Code(s): F41.1 - Generalized anxiety disorder Category: Medical Plan - Chronic Obstructive Pulmonary Disease COPD): Continue current medication regimen, including rescue inhaler use as needed and Montelukast. Educate on COPD symptom management and lifestyle modifications. - Lumbar Spine Pain: The patient will need a referral to orthopedics for further evaluation regarding leg issues and potential blood flow concerns. An X-ray of the leg will be conducted. - Depression and Anxiety: Continue Citalopram, monitor symptoms, and consider further psychiatric evaluation if needed. - Gastroesophageal Reflux Disease GERD): Continue Omeprazole for acid management. - Blood Thinner Management: Continue Rivaroxaban for anticoagulation given clot history, educate on risk of bruising, and avoid any known allergens. - Allergies: Avoid drugs known to cause rash and facial tingling Tylenol with codeine, Gabapentin, Nubain). Patient was informed and verbally consented to the use of an ambient scribe for clinic note documentation during this visit. I discussed with the patient the management of his COPD, emphasizing the importance of using his medications as prescribed and avoiding known allergens. We reviewed the potential side effects of Rivaroxaban, including increased risk of bruising, and stressed the importance of compliance to prevent clot formation. The patient understands the current management strategy for his back pain and the importance of following up with orthopedic specialists. I explained the necessity for an X-ray and reassured him regarding the potential outcomes. We also talked about planning labs for summer review of his hemoglobin and white blood cell counts. I will repeat the lab orders and manage his medications to address the overall plan. Follow-up appointments were outlined based on symptomology improvement and responses to interventions. Orders: Orders Influenza [id number] Immunization Today Z23 - Encounter for immunization Comprehensive [place]. Panel Fast Today M79.604 - Pain in right leg Complete Blood Count Auto Diff Today D64.9 - Anemia, unspecified Vitamin D 25-OH Total Today E55.9 - Vitamin D deficiency, unspecified Vitamin B12 and Folate Today E53.8 - Deficiency of other specified B group vitamins IRON PROFILE Today D64.9 - Anemia, unspecified XR tibia fibula RT 2V Today M79.604 - Pain in right leg Referrals Orthopedics Referral M79.604 - Pain in right leg Patient Instructions: - Continue using the rescue inhaler as needed and take Montelukast for COPD management. - Maintain regular use of Citalopram for depression and anxiety. - Continue Omeprazole for GERD management. - Avoid known allergens and contact medical services immediately if allergic reactions occur. - Schedule and attend an X-ray for the leg issues and follow up with orthopedics. - Monitor for any excessive bruising or bleeding while on Rivaroxaban, and seek medical help if noticed. - Plan to have lab work completed now. - Report any significant changes in symptoms or concerns immediately.
== END 2024-07-30 09:19 | disposition home or self-care (01) ==
PROVIDERS: PCP Internal Medicine; Visit Provider Internal Medicine
DX: M79.604 Pain in right leg (principal); F32.1 Major depressive disorder, single episode, moderate; I82.401 Acute embolism and thrombosis of unspecified deep veins of right lower extremity; J44.9 Chronic obstructive pulmonary disease, unspecified; K21.9 Gastro-esophageal reflux disease without esophagitis; M51.9 Unspecified thoracic, thoracolumbar and lumbosacral intervertebral disc disorder; F41.1 Generalized anxiety disorder; Z23 Encounter for immunization

== ENCOUNTER → 2024-07-30 08:36 | Outpatient (BNVA) | payer MEDICARE, SELFPAY | PROVIDERS: PCP Internal Medicine; Visit Provider Internal Medicine | DX: M79.604 Pain in right leg (principal); F32.1 Major depressive disorder, single episode, moderate; I82.401 Acute embolism and thrombosis of unspecified deep veins of right lower extremity; J44.9 Chronic obstructive pulmonary disease, unspecified; K21.9 Gastro-esophageal reflux disease without esophagitis; F41.1 Generalized anxiety disorder; M51.9 Unspecified thoracic, thoracolumbar and lumbosacral intervertebral disc disorder | CPT/HCPCS: 90471; 99212 ==

== ENCOUNTER 2024-09-06 08:07 | Outpatient (REF) | payer OTHER, SELFPAY ==
--- NOTE | ~2024-09-06 | XR_ITS ---
EXAMINATION: XR CERVICAL SPINE CLINICAL INFORMATION: S13.9XXA - Sprain of joints and ligaments of unspecified parts of neck, ... COMPARISON: None available. TECHNIQUE: 3 views of the cervical spine were obtained. FINDINGS: Craniocervical junction is intact. Multilevel marginal osteophyte formation and endplate sclerosis decreased intervertebral disc height C3 C7 more conspicuous at C5-6. No gross malalignment. No acute cortical disruption. No lytic or blastic lesions. XR/XR cervical spine 3V IMPRESSION: Multilevel cervical spondylosis C3 C7 more conspicuous at C5-6. Electronically signed by: Marquis Frazier MD 09/06/2024 02:25 PM [facility]
== END 2024-09-06 08:08 | disposition home or self-care (01) ==
LOC: HO.XRAY 08:07
PROVIDERS: PCP Internal Medicine; Visit Provider Internal Medicine
DX: S13.9XXA Sprain of joints and ligaments of unspecified parts of neck, initial encounter (principal)
CPT/HCPCS: 72040

== ENCOUNTER → 2024-09-06 08:20 | Outpatient (BNV) | payer OTHER, SELFPAY | PROVIDERS: PCP Internal Medicine; Visit Provider Radiology Diagnostic Radiology | DX: S13.9XXA Sprain of joints and ligaments of unspecified parts of neck, initial encounter (principal) | CPT/HCPCS: 72040 ==

== ENCOUNTER 2024-10-23 06:25 | Outpatient (REF) | payer MEDICARE, SELFPAY ==
[2024-10-23 06:40] LABS: MANUAL DIFF FLAG NO
[2024-10-23 07:03] LABS: Basophils Absolute Auto 0.1 X10*3/uL (0.0-0.2); Basophils Percent Auto 1.8 % (0-2); Eosinophils Absolute Auto 0.2 X10*3/uL (0.0-0.4); Eosinophils Percent Auto 5.1 % (0-4); Hematocrit 40.9 % (42.0-52.0); Hemoglobin 12.9 g/dl (14.0-18.0); Imm Gran Abs Auto 0.01 X10*3/uL (0.00-0.03); Imm Gran Pct Auto 0.3 % (0.0-0.4); Lymphocytes Absolute Auto 1.4 X10*3/uL (1.2-4.9); Lymphocytes Percent Auto 41.4 % (20-40); Mean Corpuscular HGB Conc 31.5 g/dl (31.0-36.0); Mean Corpuscular Hemoglobin 28.1 pg (27.0-33.0); Mean Corpuscular Volume 89.1 fL (80.0-98.0); Mean Platelet Volume 10.1 fL (9.4-12.4); Monocytes Absolute Auto 0.4 X10*3/uL (0.1-1.2); Monocytes Percent Auto 13.2 % (2-11); Neutrophils Absolute Auto 1.3 x10*3/uL (2.0-8.3); Neutrophils Percent Auto 38.2 % (45-73); Platelet Count 205 X10*3/uL (160-400); Red Blood Count 4.59 X10*6/uL (4.60-5.80); Red Cell Distribution Width 12.6 % (11.0-16.0); White Blood Count 3.3 X10*3/uL (4.8-10.8)
[2024-10-23 07:37] LABS: Alanine Aminotransferase 18 U/L (0-40); Albumin Level 4.2 g/dL (3.5-5.0); Alkaline Phosphatase 77 U/L (39-117); Anion Gap 10 (12-20); Aspartate Amino Transferase 51 U/L (5-37); Bilirubin Total 0.3 mg/dL (0.0-1.0); Blood Urea Nitrogen 17 mg/dL (9-16); Calcium 9.4 mg/dL (8.4-10.2); Carbon Dioxide 28 mmol/L (22-29); Chloride 108 mmol/L (96-108); Estimated Glomerular Filt Rate > 60; Glucose Fasting 99 mg/dL (60-99); Iron 83 mcg/dL (45-160); Percent Iron Saturation 27 % (15-50); Potassium 4.5 mmol/L (3.3-5.1); Sodium 141 mmol/L (135-145); Total Iron Binding Capacity 312 mcg/dL (228-428); Total Protein 7.6 g/dL (6.5-8.0); Unsaturated Iron Binding 229 ug/dL
[2024-10-23 07:55] LABS: Vitamin D 25-OH Total 27.9 ng/mL (>30)
[2024-10-23 08:04] LABS: Folate 9.1 ng/mL (> or = 4.0); Vitamin B12 924 pg/mL (200-900)
== END 2024-10-23 06:26 | disposition home or self-care (01) ==
LOC: HO.LAB 06:25
PROVIDERS: PCP Internal Medicine; Visit Provider Internal Medicine
DX: D64.9 Anemia, unspecified (principal); E53.8 Deficiency of other specified B group vitamins; E55.9 Vitamin D deficiency, unspecified; M79.604 Pain in right leg
CPT/HCPCS: 36415; 80053; 82306; 82607; 82746; 83540; 85025

== ENCOUNTER 2025-01-29 08:31 | Outpatient (AMB) | payer MEDICARE, SELFPAY ==
--- NOTE | 2025-01-29 08:33 | A.OFFVIS_ITS ---
Intake Vital Signs 01/29/25 08:35 Height 5 ft 7 in Weight 178 lb BMI 27.9 BP 120/82 Blood Pressure Location Lt brachial Position Sitting Intake Visit Reasons: SWV G0439 Intake Note: Patient here for a subsequent annual wellness visit Automobile Body Customizer Required: No Accompanied by: Self / Same As Patient Allergies acetaminophen [Tylenol-Codeine] Allergy (Intermediate, Verified 01/29/25 08:57) rash codeine [Tylenol-Codeine] Allergy (Intermediate, Verified 01/29/25 08:57) rash gabapentin Adverse Reaction (Intermediate, Verified 01/29/25 08:57) facial tingling Nubain Allergy (Intermediate, Uncoded 01/29/25 08:57) low blood pressure Medication List - Last Reconciled 01/29/25 by Cheri Chávez MD albuterol sulfate 90 mcg/actuation (Ventolin HFA) 2 puffs inhalation Q4-6H PRN 30 days apixaban (Eliquis) 5 mg PO BID 30 days cholecalciferol (vitamin D3) 25 mcg PO DAILY 90 days citalopram 10 mg PO DAILY 90 days clotrimazole-betamethasone 1-0.05 % 1 appl topical BID 30 days diclofenac sodium 1% (Arthritis Pain (diclofenac)) 2 grams topical QID PRN 30 days fluticasone propionate 50 mcg/actuation 1 spray intranasal DAILY 30 days lidocaine 4% (Aspercreme (lidocaine)) 1 patch topical DAILY PRN 30 days loratadine (Allergy Relief (loratadine)) 10 mg PO DAILY 90 days montelukast (Singulair) 10 mg PO QPM 30 days omeprazole 20 mg PO BID 90 days sennosides (Senna Lax) 8.6 mg PO BEDTIME PRN 90 days tramadol 50 mg PO Q4-6H PRN 30 days triamcinolone acetonide 0.1% 1 appl topical DAILY 2 weeks umeclidinium-vilanterol 62.5-25 mcg/actuation (Anoro Ellipta) 1 inh inhalation DAILY 30 days Ventolin HFA 90 mcg/actuation (albuterol sulfate) 2 puffs inhalation Q6H PRN 30 days NS HPI HPI Comments History of Present Illness Details PPP handed to patient. [place] of care reviewed and updated. The patient is a 49-year-old male presenting for management of chronic conditions and preventative care. The patient has a history of Chronic Obstructive Pulmonary Disease (COPD) and reports being under control without recent exacerbations. He has not visited his plate shop helper recently but feels stable. The patient experiences depression with anxiety, for which he is prescribed citalopram. He reports an 8-year-old PHQ-9 score but does not currently see a mental health professional. He has allergic rhinitis managed with loratadine and Singulair, and gastroesophageal reflux disease (GERD) managed with omeprazole. The patient suffers from chronic back pain, for which he takes senna and tramadol. He has a history of vitamin D deficiency and is advised to take vitamin D supplements daily. The patient has a family history of dementia, with his mother currently affected. He has a history of deep vein thrombosis (DVT) and low hemoglobin, for which he is advised to see a business database analyst. Preventative care includes a scheduled colonoscopy for the following month. - Colonoscopy scheduled for next month - Advised to take vitamin D supplements daily [facility] Medical History (Updated 01/29/25 @ 09:19 by Cheri Chávez MD) Moderate major depression Bicytopenia Encounter for physical examination Constipation by delayed colonic transit Generalized anxiety disorder Allergic rhinitis Screening for STD (sexually transmitted disease) Presence of vena cava filter Lumbar disc disease GERD (gastroesophageal reflux disease) Moderate asthma Right leg DVT Surgical History History of lumbar surgery Family History Father FH: mental illness Maternal Grandmother Stroke Cancer Diabetes HTN (hypertension) Mother Alzheimer dementia Social History Housing: Apartment Alcohol intake: former Year quit: 2010 Patient Tobacco Use Status: Former Tobacco user Tobacco use type: Cigarette Years Smoked: 24 years e-Cigarette/Vaping Use: Never Used Second Hand Smoke Exposure: No service: No Current occupational status: unemployed Cognitive needs: No Hearing needs: No Vision needs: No Questionnaire Medicare Wellness Checkup What gender do you identify with?: male During the past 4 weeks, how much have you been bothered by emotional problems such as feeling anxious, depressed, irritable, sad or downhearted, and blue?: not at all During the past 4 weeks, has your physical & emotional health limited your social activities with family, friends, neighbors, or groups?: moderately During the past 4 weeks, how much bodily pain have you generally had?: mild pain During the past 4 weeks, was someone available to help you if you needed & wanted help?: yes, a little During the past 4 weeks, what was the hardest physical activity you could do for at least 2 minutes?: light Can you get to places out of walking distance without help? (For eg., can you travel alone on buses, taxis or drive your car?): No Can you go shopping for groceries or clothes without someone's help?: No Can you prepare your own meals?: Yes Can you do your housework without help?: No Because of any health problems, do you need the help of another person with your personal care needs such as eating, bathing, dressing or getting around the house?: Yes Can you handle your own money without help?: Yes During the past 4 weeks, how would you rate your health in general?: fair During the past 4 weeks how have things been going for you?: pretty bad Are you having difficulties driving your car?: sometimes Do you always fasten your seat belt when you are in a car?: yes, sometimes During past 4 weeks, have you been bothered by the following: never: Falling or dizzy when standing up, Sexual problems?, Trouble eating well?, Teeth or denture problems?, Problems using the telephone? and Tiredness or fatigue? Have you fallen 2 or more times in the past year?: Yes Are you afraid of falling?: Yes Are you a smoker?: no During the past 4 weeks, how many drinks of wine, beer, or other alcoholic beverages did you have?: no alcohol at all Do you exercise for about 20 minutes 3 or more times a week?: no, I usually do not exercise this much Have you been given information to help with the following?: no: Hazards in your house that might hurt you? and no: Keeping track of your medications? How often do you have trouble taking medicines the way you have been told to take them?: I always take medicine as prescribed How confident are you that you can control & manage most of your health problems?: not very confident What is your race?: or origin or descent Mini Mental State Exam (MMSE) Orientation What is the (year) (season) (date) (day) (month)?: year, season, date, day and month Where are we (state) (county) (town or city) (hospital) (floor)?: state, county, town or city, hospital/clinic and floor Registration Name of 3 unrelated objects clearly and slowly, then ask patient to repeat all 3 of them. (1st repeat determines score. Make sure they can repeat all three): object 1, object 2 and object 3 Attention & Calculation (CHOOSE ONE) Spell WORLD backwards (DLROW): 5 letters Recall Ask patient to repeat the 3 items from question #3.: object 1, object 2 and object 3 Language Show patient a wristwatch & ask what it is. Repeat for pencil.: watch Ask the patient to repeat the phrase 'No ifs, ands, or buts' after you.: correct Ask the patient to 'take a piece of paper with their right hand' 'fold paper in half' 'place paper on floor': take paper in right hand, fold paper in half and place paper on floor Print the sentence 'CLOSE YOUR EYES' on a piece. If patient actually closes eyes then score.: followed written direction Give patient a blank piece of paper & ask to write a sentence. Score if it contains a noun & verb.: sentence contains subject and verb Ask patient to copy figure of intersecting pentagons exactly. Score if all 10 angles & 2 intersects are included.: all 10 angles present & 2 are intersected Score Score: 29 Activity of Daily Living Bathing - sponge bath, tub bath or shower: receives no assistance (gets in/out by self, if usual bathing means Dressing - getting clothes from closets & drawers, including inner/outer garments & fasteners.: gets clothes & gets completely dressed without help Transfer: moves in & out of bed and chair without help (may use support object) Continence: has occasional 'accidents' Feeding: feeds self without help Total Score: 0 Information obtained from: patient Using telephone: independent Traveling: independent Shopping: independent Preparing meals: needs assistance Housework: needs assistance Taking medicine: independent Managing money: independent PHQ-9 Over the last 2 weeks, how often have you been bothered by any of the following problems? 1. Little interest or pleasure in doing things: not at all 2. Feeling down, depressed, or hopeless: several days 3. Trouble falling or staying asleep, or sleeping too much: not at all 4. Feeling tired or having little energy: several days 5. Poor appetite or overeating: not at all 6. Feeling bad about yourself - or that you are a failure or have let yourself or your family down: more than half the days 7. Trouble concentrating on things, such as reading the newspaper or watching television: more than half the days 8. Moving or speaking so slowly that other people could have noticed. Or the opposite - being so fidgety or restless that you have been moving around a lot more than usual: more than half the days 9. Thoughts that you would be better off or of hurting yourself in some way: not at all Total score: 8 Depression Screening Interpretation: Positive Depression Screening Follow-up: Existing condition and Follow-up Visit Requested Depression Screening Done: Yes 72917 - PHQ-9 Billing: Yes Source: Developed by Drs. Nilesh Juárez, Gris Antonio, Yuan Guillen and colleagues, with an educational len from [employer]. AUDIT C Alcohol Use Questionnaire (AUDIT-C) 1. How often do you have a drink containing alcohol?: Never Total Score: 0 Score Reviewed/Action Taken: No SHILO-7 AMB Questionnaire SHILO-7 Date SHILO - 7 assessed: 01/29/25 Feeling nervous, anxious, or on edge: 1 = Several days Not being able to stop or control worryin = Not at all Worrying too much about different things: 1 = Several days Trouble relaxin = Several days Being so restless that it is hard to sit still: 0 = Not at all Becoming easily annoyed or irritable: 1 = Several days Feeling afraid as if something awful might happen: 0 = Not at all Total SHILO-7 score (0-4 normal; 5-9 mild; 10-14 moderate; 15-21 severe): 4 Source: Developed by Drs. Nilesh Juárez, Yuan Harrell and colleagues, with an educational len from [employer]. SHILO-7 Assessment Billing SHILO-7 Assessment Tool: SHILO-7 Assessment 22536 Thrive Questionnaire Date Thrive assessed: 01/29/25 I am a: Patient What is your living situation today?: I have a steady place to live Within the past 12 months, did the food you bought not last and you didn't have the money to get more?: Never true Within the past 12 months, did you worry whether your food would run out before you got money to buy more?: Never true Do you have trouble paying for medicines?: No Do you have trouble getting transportation to medical appointments?: No Do you have trouble paying your heating and electricity bill?: No Do you have trouble taking care of your child, family member or friend?: No Do you have trouble with day-to-day activities such as bathing, preparing meals, shopping, managing finances, etc.?: No Are you currently unemployed and looking for a job?: No Are you interested in more education?: No Please select the resources that you would like help with: None THRIVE Score: 0 Review of Systems Const All systems reviewed & are unremarkable except as noted in HPI and below Card Denies chest pain at rest, Denies chest pain with activity, Denies edema, Denies irregular heart rhythm, Denies claudication, Denies dyspnea, Denies dyspnea on exertion, Denies orthopnea, Denies paroxysmal nocturnal dyspnea and Denies slow heart rate Resp Denies cough, Denies dyspnea and Denies dyspnea on exertion GI Denies abdominal pain, Denies change in bowel habits, Denies excessive flatus, Denies nausea and Denies vomiting Denies urinary hesitancy, Denies urinary incontinence and Denies urinary urgency Physical Exam Vital Signs: Last Vital Signs BP 120/82 01/29/25 08:35 BMI result Body Mass Index 27.9 Resp Effort & Inspection: normal respiratory effort Auscultation: clear to auscultation bilaterally Cardio Jugular venous distension: no JVD Rate: regular rate Rhythm: regular rhythm Heart sounds: S1 normal heart sound present and S2 normal heart sound present Neuro Cognition (Neuro): normal cognition Gait exam (Neuro): Normal gait present Romberg Test: Negative Extrem General: Yes full ROM Assessment & Plan Assessment & Plan (1) Encounter for Medicare annual wellness exam: Code(s): Z00.00 - Encounter for general adult medical examination without abnormal findings (2) Mild recurrent major depression: Code(s): F33.0 - Major depressive disorder, recurrent, mild (3) Bicytopenia: Code(s): D75.89 - Other specified diseases of blood and blood-forming organs (4) Right leg DVT: Code(s): I82.401 - Acute embolism and thrombosis of unspecified deep veins of right lower extremity (5) COPD (chronic obstructive pulmonary disease): Code(s): J44.9 - Chronic obstructive pulmonary disease, unspecified Plan The patient will continue management of Chronic Obstructive Pulmonary Disease COPD) with current medications and is advised to follow up with a plate shop helper for ongoing care. For depression with anxiety, the patient will continue citalopram and is encouraged to seek mental health support if needed. Allergic rhinitis and gastroesophageal reflux disease GERD) will be managed with loratadine, Singulair, and omeprazole as prescribed. Chronic back pain management includes the use of senna and tramadol, with consideration for pain management consultation if symptoms persist. The patient is advised to take vitamin D supplements daily to address vitamin D deficiency. Referral to hematology is recommended for evaluation of low hemoglobin and history of deep vein thrombosis DVT). Preventative care includes a scheduled colonoscopy next month. Patient was informed and verbally consented to the use of an ambient scribe for clinic note documentation during this visit. During the visit, I discussed the management of COPD, emphasizing the importance of regular follow-up with a plate shop helper. We reviewed the patient's current medications for depression and anxiety, and I encouraged seeking mental health support if necessary. I explained the management plan for allergic rhinitis and GERD, including the use of loratadine, Singulair, and omeprazole. We discussed the management of chronic back pain and the potential need for pain management consultation. I advised the patient to take vitamin D supplements daily and referred him to hematology for low hemoglobin and DVT evaluation. Preventative care measures, including a scheduled colonoscopy, were also discussed. Orders: Orders IRON PROFILE Today D64.9 - Anemia, unspecified Lipid Panel Today E78.5 - Hyperlipidemia, unspecified Comprehensive [place]. Panel Fast Today S13.9XXA - Sprain of joints and ligaments of unspecified parts of neck, initial encounter Complete Blood Count Auto Diff Today D64.9 - Anemia, unspecified Vitamin D 25-OH Total Today E55.9 - Vitamin D deficiency, unspecified Referrals Hematology & Oncology Referral D75.89 - Other specified diseases of blood and blood-forming organs, I82.401 - Acute embolism and thrombosis of unspecified deep veins of right lower extremity Patient Instructions: - Continue current COPD medications and follow up with a plate shop helper. - Take citalopram as prescribed and seek mental health support if needed. - Use loratadine, Singulair, and omeprazole as directed for allergies and GERD. - Take senna and tramadol for back pain, consider pain management consultation if pain persists. - Take vitamin D supplements daily. - Attend hematology appointment for low hemoglobin and DVT evaluation. - Attend scheduled colonoscopy next month. Quality Reporting (2019) Depression/Bipolar (159/160/161/177) PHQ-9: Total score: 8 Coding Level of Care Code Medicare Subsequent (G0439) Est Pt Level 3 (55983) Diagnoses Encounter for Medicare annual wellness exam Z00.00 Mild recurrent major depression F33.0 Bicytopenia D75.89 Right leg DVT I82.401 COPD (chronic obstructive pulmonary disease) J44.9 CPT Codes Advance Care Planning - Time spent: 1-15 minutes, on File ([id number]) Additional Codes SHILO-7 Assessment Billing - SHILO-7 Assessment Tool: SHILO-7 Assessment 87457 ([id number]) PHQ-9 - 67691 - PHQ-9 Billing: Yes ([id number]) Time Spent (min) 40 Advance Care Planning Advance Care Planning discussion: Exists, not on file Date of discussion: 01/29/25 Who was present: patient and me Forms completed: Health Care Proxy Time spent: 1-15 minutes, on File Actual minutes spent: 1
[2025-01-29 08:35] VITALS: BP 120/82; BMI 27.9
--- OUTSIDE RECORDS SUMMARY | 2025-01-29 08:46 | XMS_ITS | Clinical Summary ---
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 Name Role Phone Unavailable Primary Care Provider Unavailabl e Social History Tobacco Use Types Packs/Day Years Used Date Smoking Tobacco: Never Assessed Sex and Gender Information Value Date Recorded Sex Assigned at Not on file Legal Sex Male 11:07 AM EST Gender Identity Not on file Sexual Orientation Not on file Plan of Treatment Health Maintenance Due Date Last Done Comments DTaP,Tdap,and Td Vaccines (1 - Tdap) 1993 Hepatitis B Vaccines (1 of 3 - 19+ 3-dose series) 1993 COVID-19 Vaccine ( - 2023-2 5 season) 2024 Pneumococcal Vaccine: 50+ Ye ars (1 of 1 - PCV) 2024 Zoster Vaccines (1 of 2) 2024 Influenza Vaccine (Season Ended) 2025 HIB Vaccines Aged Out No longer eligi ble based on patient's age to complete this topic HPV Vaccines Aged Out No longer eligi ble based on patient's age to complete this topic Hepatitis A Vaccines Aged Out No long er eligible based on patient's age to complete this topic IPV Vaccines Aged Out No longer eligi ble based on patient's age to complete this topic MMR Vaccines Aged Out No longer eligi ble based on patient's age to complete this topic Meningococcal ACWY Vaccine Aged Out N o longer eligible based on patient's age to complete this topic Meningococcal B Vaccine Aged Out No l onger eligible based on patient's age to complete this topic Pneumococcal Vaccine: Pediat rics (0 to 5 Years) and At-Risk Patients (6 to 64 Years) Aged Out No longer eligible b ased on patient's age to complete this topic RSV Immunization Patients Un carmen 20 months Aged Out No longer eligible b ased on patient's age to complete this topic Varicella Vaccines Aged Out No longer eligible based on patient's age to complete this topic
== END 2025-01-29 10:29 | disposition home or self-care (01) ==
LOC: HO.HMCH 08:32
PROVIDERS: PCP Internal Medicine; Visit Provider Internal Medicine
DX: Z00.00 Encounter for general adult medical examination without abnormal findings (principal); J44.9 Chronic obstructive pulmonary disease, unspecified; I82.401 Acute embolism and thrombosis of unspecified deep veins of right lower extremity; F33.0 Major depressive disorder, recurrent, mild; D75.89 Other specified diseases of blood and blood-forming organs

== ENCOUNTER → 2025-01-29 08:31 | Outpatient (BNVA) | payer MEDICARE, SELFPAY | PROVIDERS: PCP Internal Medicine; Visit Provider Internal Medicine | DX: Z00.00 Encounter for general adult medical examination without abnormal findings (principal); F33.0 Major depressive disorder, recurrent, mild; D75.89 Other specified diseases of blood and blood-forming organs; I82.401 Acute embolism and thrombosis of unspecified deep veins of right lower extremity; J44.9 Chronic obstructive pulmonary disease, unspecified | CPT/HCPCS: 96127; 99212 ==